=== PATIENT | male | born 1955 | race Caucasian/White ===

== ENCOUNTER 2017-04-11 15:49 | Emergency (ER) | payer BC ==
[~2017-04-11] VITALS: Ht 177.8 cm; Wt 98.7 kg
[2017-04-11 16:16] LABS: HEMATOCRIT 29.1 % (38.0-50.0); MCH 20.6 PG (29.0-34.0); MCHC 27.5 G/DL (30.0-36.0); MCV 74.8 FL (86-99); MEAN PLAT.VOLUME 10.2 uM^3 (9.0-12.4); PLATELET COUNT 246 K/uL (156-360); RBC DIS.WIDTH-CV 17.1 % (11.8-14.6); RBC DIS.WIDTH-SD 45.7 % (39-53); RED BLOOD COUNT 3.89 M/uL (4.00-5.50); WHITE BLOOD COUNT 10.9 K/uL (4.1-10.2)
[2017-04-11 16:18] LABS: INTER. NORMALIZED RATIO 1.1; PROTHROMBIN TIME 12.4 SEC (10.2-12.9)
[2017-04-11 16:19] LABS: CHLORIDE 109 mEq/L (99-109); POTASSIUM 4.1 mEq/L (3.7-5.4); SODIUM 138 mEq/L (136-147)
[2017-04-11 16:20] LABS: GLUCOSE 96 mg/dL (70-99)
[2017-04-11 16:22] LABS: ANION GAP 11 MEQ/L (2-14)
[2017-04-11 16:24] LABS: GFR ESTIMATE (CALCULATED) > 59 mL/min/
[2017-04-11 16:25] LABS: UREA NITROGEN (BUN) 18 mg/dL (9-23)
[2017-04-11 16:35] LABS: PTT 17.9 SEC (25-37)
[2017-04-11 20:38] VITALS: BP 136/75
== END 2017-04-11 20:40 | disposition short-term general hospital (02) ==
LOC: EME 15:49
PROVIDERS: Emergency Medicine
PROC: 3E0234Z Introduction of Serum, Toxoid and Vaccine into Muscle, Percutaneous Approach (ICD-10-PCS; principal; 2017-04-11)
DX: S55.112A Laceration of radial artery at forearm level, left arm, initial encounter (principal); T79.4XXA Traumatic shock, initial encounter; W26.0XXA Contact with knife, initial encounter; Z23 Encounter for immunization; Z72.0 Tobacco use
CPT/HCPCS: 73206; 80048; 83605; 85027; 85610; 85730; 86850; 86900; 86901; 99281; 99285; J7030